=== PATIENT | female | born 1950 | race Caucasian/White ===

== ENCOUNTER 2021-10-28 07:07 | Day surgery (SDC) | payer MEDICARE, SELFPAY ==
[2021-10-28] VITALS (13 sets, daily range): BP systolic 90–160; BP diastolic 42–90; PULSE 48–66; RESP 16–19; TEMP 36.9; O2SAT 94–100; BMI 32.9
--- NOTE | 2021-10-28 | IR_ITS ---
APPROVED REPORT Patient Location: Outpatient [facility]: BITA Recinos RT (R) PROCEDURES Left heart catheterization Left ventriculogram Selective coronary angiogram Informed consent was obtained prior to the procedure. COMPLICATIONS None Estimated Blood Loss: Less than 10 mls TECHNIQUE One percent lidocaine used to anesthetize the right anterior aspect of the wrist. The right radial artery was accessed via the Seldinger technique. A 6 Urdu sheath was placed in the right radial artery. 2.5 mg of verapamil, 800 mcg of nitroglycerin, 1mg Lidocaine and 5000 U Heparin were given through the arterial sheath. JL and JR4 catheter used to perform selective coronary angiogram. At the end of the procedure the apparatus was removed the sheath was removed and hemostasis was achieved using TR banding patient was transferred to the postop already in stable condition ANGIOGRAPHIC RESULTS The left main artery Normal The left anterior descending artery Is proximally normal. The midportion has a 50% concentric in-stent restenotic lesion followed by an additional 70 to 80% in-stent restenosis. The distal LAD is small to medium in size and is highly tortuous The circumflex artery Nondominant normal The right coronary artery Massively large dominant vessel with mild 10 to 20% proximal stenosis. The ROJAS ventriculogram reveals None performed The left ventricular end-diastolic pressure Not measured IMPRESSION Moderate to severe disease in the mid to distal LAD accompanied by normal flow Widely patent circumflex artery and dominant right coronary artery PLAN 1. Patient remains in low and acceptable risk to proceed with upcoming brain surgery. There is no perioperative percutaneous cardiac intervention which will decrease patient's perioperative risk. He is lesions are best managed medically and should respond quite well to beta-blockers and risk factor modification 2. Continue medical management Electronically signed by : Carroll Edwards MD 10/28/2021 12:53:39
--- NOTE | 2021-10-28 07:31 | US_ITS ---
FINAL REPORT CLINICAL HISTORY: claudication, PAD hx- Rt leg stent, CAD-coronary stent, Smoker, HTN, HLD FINDINGS: ABIs were obtained in the bilateral lower extremities. ABIs are within normal limits measuring 1.0 bilaterally. IMPRESSION: Normal ABIs. Reviewed, Interpreted and Dictated by Nikunj Yanes III, MD Transcribed by Sade Howe Authenticated by Nikunj Yanes III, MD on 10/28/2021 09:50:43 AM [facility]
--- NOTE | 2021-10-28 07:31 | CA_ITS ---
APPROVED REPORT EXAM: Comprehensive 2D, Doppler, and color-flow Echocardiogram [employer] Painter: Kacey Santos, BUCK, RVS Ht: 5 ft 7 in Wt: 223lbs BSA: 2.12 BP: 145/77 mmHg Indications: CP, SOA, CAD-coronary stent, Pre op clearance-Brain tumor, smoker, HTN, HLD, Murmur 2D Dimensions IVSd 1.31 cm LVEF (Visual) 77.60 % PWd 0.93 cm LA Volume 43.20 mL LVDd 4.89 cm LA Volume Index 20.40 mL/m2 (M/F) 16-34 LVDs 2.62 cm Aortic Root 2.99 cm Left Atrium 3.81 cm LVOT 1.86 cm (M/F) 1.5-2.5 M-Mode Dimensions RVDd 2.62 cm (0.9-2.6) LA Diam 3.82 cm (1.9-4.0) LVDd 4.97 cm (3.5-5.7) Ao Diam 3.37 cm (2.0-3.7) LVDs 3.04 cm (3.5-5.7) IVSd 1.18 cm (0.6-1.1) PWd 0.87 cm (0.6-1.1) EF (Teich) 69.00% EPSs 0.32 cm FS 38.80% EDV (Teich) 116.60 mL TAPSE 2.86 (<1.7) ESV (Teich) 36.20 mL LV Diastology E Decel Time 253.00 (160-240 msec) E/A Ratio 1.09 MED E' 9.70 (< 7 cm/sec) MED A' 9.70 cm/s E'/MED E' Ratio 8.45 (>14) LAT E' 10.40 (<10 cm/sec) LAT A' 13.00 cm/s E/LAT E' Ratio 7.88 (>14) Aortic Valve LVOT Max 121.00 (70-110 cm/s) LVOT VTI 28.33 cm AoV Peak Suman. 150.00 (50-130 cm/s) AO Peak GR. 9.00 mmHg AO Mean GR. 4.50 (<5 mmHg) AO VTI 37.91 (18-25 cm) TIM (VTI) 2.03 (2.5-4.5 cm2) Mitral Valve MV A Velocity 76.00 (40-130 cm/s) E/A Ratio 1.09 MV Decel. Time 253.00 (160-240 ms) MV Mean Gr. 1.40 (<2mmHg) MV PHT 73.00 ms Pulmonary Valve PV Peak Velocity 78.00 (50-150 cm/s) Tricuspid Valve TR P. Velocity 170.00 cm/s RAP Estimate 10.00 mmHg RVSP 21.60 mmHg Left Ventricle Left atrium is mildly enlarged, left ventricle is normal size, mild concentric left ventricular hypertrophy, estimated ejection fraction 55% with no regional wall motion abnormality, grade 2 diastolic dysfunction seen without tissue Doppler evidence of raise left atrial pressure. Right Ventricle Right atrium and right ventricle are mildly enlarged with normal contractility. Aortic Valve Aortic valve is minimally thickened and fibrosed, there is no aortic stenosis or aortic insufficiency. Mitral Valve Mitral valve grossly normal, there is trace mitral regurgitation. Tricuspid Valve Tricuspid valve grossly normal, there is trace tricuspid regurgitation, tricuspid regurgitation jet velocity is inadequate for calculation of the right ventricular systolic pressure. Pulmonic Valve Pulmonic valve is poorly visualized. Great Vessels Aortic root is normal size. Inferior vena cava is poorly visualized. Pericardium No significant pericardial effusion noted. Conclusion 1. Biatrial enlargement, normal left ventricular size, mild concentric left ventricular hypertrophy, estimated ejection fraction 55% with no regional wall motion abnormality, grade 2 diastolic dysfunction seen without tissue Doppler evidence of raise left atrial pressure. 2. Trace mitral and tricuspid regurgitation. 3. No significant pericardial effusion noted. 4. Inferior vena cava is poorly visualized. Electronically signed by : Tyler Smith MD 10/29/2021 16:34:09
[2021-10-28 08:34] LABS: Coronavirus 19, PCR Not Detected (NotDetected); Influenza A, PCR Not Detected (NotDetected); Influenza B, PCR Not Detected (NotDetected)
[2021-10-28 09:34] LABS: Basophils # 0.1 K/mm3 (0-0.2); Basophils % 0.7 % (0.1-2.0); Eosinophils # 0.5 K/mm3 (0.0-0.4); Eosinophils % 5.2 % (0.1-12.0); Hematocrit 38.8 % (37.0-47.0); Lymphocytes # 2.1 K/mm3 (0.7-4.5); Lymphocytes % 22.9 % (10-50); Mean Corpuscular HGB Conc 33.5 g/dL (31.8-35.4); Mean Corpuscular Volume 89.5 fl (81-99); Monocytes # 0.5 K/mm3 (0.1-1.0); Monocytes % 5.7 % (1.7-9.3); Neutrophils % 65.6 % (37.0-80.0); Platelet Count 301 K/mm3 (142-424); Red Blood Count 4.34 M/mm3 (4.20-5.40); White Blood Count 9.1 K/mm3 (4.8-10.8)
[2021-10-28 10:39] LABS: Anion Gap 9.1 mEq/L (5-15); Blood Urea Nitrogen 14 mg/dl (7-17); Calcium 8.8 mg/dl (8.4-10.2); Carbon Dioxide 27 mmol/L (22.0-30.0); Chloride 109 mmol/L (98-107); Creatinine Clearance Estimated 81 mL/min (50-200); Estimated Glomerular Filt Rate 55 ml/min (>60); GFR (African American) 66 ML/MIN (>60); Glucose 91 mg/dl (74-100); Potassium 4.1 mmoL/L (3.5-5.1); Sodium 141 mmol/L (136-145)
== END 2021-10-28 16:45 | disposition home or self-care (01) ==
PROVIDERS: PCP Family Medicine; Visit Provider Internal Medicine
DX: E78.2 Mixed hyperlipidemia (principal); I11.9 Hypertensive heart disease without heart failure; I70.213 Atherosclerosis of native arteries of extremities with intermittent claudication, bilateral legs; R06.00 Dyspnea, unspecified; F17.210 Nicotine dependence, cigarettes, uncomplicated; I25.118 Atherosclerotic heart disease of native coronary artery with other forms of angina pectoris; T82.855A Stenosis of coronary artery stent, initial encounter; Y83.1 Surgical operation with implant of artificial internal device as the cause of abnormal reaction of the patient, or of later complication, without mention of misadventure at the time of the procedure; Z95.820 Peripheral vascular angioplasty status with implants and grafts; Z71.6 Tobacco abuse counseling; J44.9 Chronic obstructive pulmonary disease, unspecified; I73.9 Peripheral vascular disease, unspecified
CPT/HCPCS: 80048; 85025; 93306; 93458; 93923; 99152; C1725; C1769; C9803; J1644; Q9967; U0003; U0005